=== PATIENT | female | born 1985 | race Caucasian/White ===

== ENCOUNTER 2016-04-02 15:07 | Outpatient (CLI) | payer OTHER ==
[2016-04-02 15:26] VITALS: BMI 30.4
--- NOTE | 2016-04-02 18:12 | US ---
HISTORY: Pediatric bradycardia Estimated due date 04/16/2016. 38 weeks 0 days gestation. biophysical profile score requested. FINDINGS: BREATHING MOVEMENTS: 2 MOTION: 2 TONE: 2 AMNIOTIC FLUID VOLUME: 2 TOTAL: 8 AMNIOTIC FLUID INDEX: 11.76 cm. HEART RATE: 120-136 bpm. PLACENTA: Grade 2 PRESENTATION: Vertex IMPRESSION: biophysical profile score 8. Exam is otherwise unremarkable. Findings were called to nurse taking care of the patient at approximately 1807 hours on 04/02/2016.
--- NOTE | 2016-04-02 20:00 | PDOC36 ---
Provider Note Subject: S/ PT sent from office due to audible FHT 110-140. 31 yo at 38 weeks with some mild contractions. Initially FHT reactive and TOCO Q4 minutes. BPP obtained and was 8/8. SVE /50-3, anterior, soft Pt returned from US and was having more painful contractions then before. She lives in [place] and so we are going to continue to triage her for another 2 hours and see if she changes and moves into active labor. With the roads and ice, and her distance and 4th baby, we may need to obs her overnight if there remain painful or if she makes some minor cervical changes. Reviewed with RN and pt and her and they are agreeable. She notes that she would be very anxious to go home with how she is feeling at this time.
== END 2016-04-02 21:21 | disposition home or self-care (01) ==
LOC: FBC 15:07 → FBCOUT 15:07
PROVIDERS: ATTEND Family Medicine
DX: O76 Abnormality in fetal heart rate and rhythm complicating labor and delivery (principal); O47.1 False labor at or after 37 completed weeks of gestation; Z3A.38 38 weeks gestation of pregnancy
CPT/HCPCS: 76819; 59025; 81002; G0463

== ENCOUNTER 2016-04-13 18:12 | Inpatient (IN) | payer OTHER ==
[2016-04-13] MEDS ORDERED: OXYTOCIN IN LR 500 ML IV ONE ×2 (19:11→20:32)
[2016-04-13] MEDS ORDERED: LACTATED RINGERS 1,000 ML IV PRN (19:11)
[2016-04-13] MEDS ORDERED: PENICILLIN G POTASSIUM 5 MMU in NS 0.9% (MINI-BAG PLUS) 100 ML IV ONE (19:12)
[2016-04-13] MEDS ORDERED: LACTATED RINGERS 1,000 ML IV SCH (19:15)
[2016-04-13] MEDS ORDERED: PENICILLIN G POTASSIUM 5 MMU VIAL ONE (19:25)
[2016-04-13] MEDS ORDERED: NS 0.9% (MINI-BAG PLUS) 100 ML IV ONE (19:25)
[2016-04-13] MEDS ORDERED: IV START KIT ONE (19:25)
[2016-04-13 20:32] LABS: HEMATOCRIT 38.1 % (37.0-47.0); HEMOGLOBIN 13.4 gm/l (12.0-16.0); MEAN CELL VOLUME 90.1 fl (81.0-99.0); MEAN CORPUSCULAR HEMOGLOBIN 31.7 pg (27.0-31.0); MEAN CORPUSCULAR HGB CONC 35.2 g/dl (33.0-37.0); RED CELL DISTRIBUTION WIDTH 13.2 % (11.5-14.5)
[2016-04-13] MEDS ORDERED: LIDOCAINE Viscous 2% 15 ML UDCUP ONE (20:32)
[2016-04-13] MEDS ORDERED: OXYTOCIN 10 UNITS/ML VIAL ONE (20:32)
[2016-04-13] MEDS ORDERED: PUMP TUBING ONE (20:32)
[2016-04-13] MEDS ORDERED: LIDOCAINE 1% (PRES FREE) 30 ML VIAL ONE (20:32)
[2016-04-13] MEDS ORDERED: MINERAL OIL 25 ML BOT ONE (20:32)
[2016-04-13 21:49] VITALS: BMI 29.5
--- NOTE | 2016-04-13 22:08 | PCMAN ---
OB Admission Note - History : 4 Term: 3 : 0 Abortions (S&E): 0 Livin EDC:: 04/16/16 Gestational Age (weeks): 39 Days (#/7): 4 Admit Cervical Dilation:: 5 Admit Cervical Effacement (%):: 70 Admit Station:: -3 Admit Presentaton:: Vertex Membrane Status: Intact Contractions: Yes Contraction Frequency:: every 4-6 minutes Heart Rate:: 130 Status:: Cat 1 EFW:: 9 pounds Summary of Course:: PNC essentially unremarkable. Had glucosuria at 28 weeks with GTT testing and again at 34 weeks. Weight gain about 38 pounds. Hx of LGA infants. PElvis is adequate - Labs Blood Type: A (+) positive Rubella Status: Immune GBS Status: Positive Abnormal Labs: None - Physical Exam General: Afebrile Psych/Mental Status: Mood/Affect Appropriate, Judgment/Insight Intact Neurological: Grossly Intact, Alert, Oriented x 4, Normal Speech HEENT: Atraumatic, EOMI Lungs: Clear to Auscultation Bilaterally, Normal Air Movement Cardiovascular: Regular Rate and Rhythm, Normal S1, Normal S2, No Murmur Abdomen: No Tenderness Genitourinary: Normal Female Genitalia Extremities: Full ROM, No Cyanosis, No Edema, No Tenderness Skin: Normal Color, Warm, Dry, Intact - Problems (1) Qualifiers: Weeks of gestation: 39 weeks Qualifier Code: (Z3A.39) 39 weeks gestation of Status: Acute Code: Z33.1 Assessment/Plan: Has made cervical change since office check. Contractions mildly uncomfortable. Will AROM when head better applied to cervix and adequate time has passed with GBS prophylaxis (2) Group B streptococcal carriage complicating Status: Acute Code: O99.820 Assessment/Plan: Will receive PCN prophylactically (3) tubal ligation planned Status: Acute Code: [id number] Assessment/Plan: Consent reviewed and she continues to desire PPBTL
[2016-04-13] MEDS: OXYTOCIN IN LR 500 ML IV PRN (23:43)
[2016-04-13] MEDS: PENICILLIN G 3 MIL UNIT PREMIX 3 MMU in Premix (D5W) 50 ml 1 EACH IV SCH (23:45)
[2016-04-14] MEDS: OXYTOCIN IN LR 500 ML IV PRN ×2 (01:30→01:33)
[2016-04-14] MEDS ORDERED: PENICILLIN G 3 MIL UNIT PREMIX 50 ML IV ONE (03:45)
[2016-04-14] MEDS: PENICILLIN G 3 MIL UNIT PREMIX 3 MMU in Premix (D5W) 50 ml 1 EACH IV SCH (03:47)
[2016-04-14] MEDS ORDERED: MINERAL OIL 25 ML BOT TP ONE (03:57)
[2016-04-14] MEDS ORDERED: DOCUSATE SODIUM 100 MG CAPSULE PO PRN (04:25)
[2016-04-14] MEDS ORDERED: HYDROCODONE/ACETAMINOPHEN 5/325MG TABLET PO PRN (04:25)
[2016-04-14] MEDS ORDERED: MAGNESIUM HYDROXIDE 30 ML UDCUP PO PRN (04:25)
[2016-04-14] MEDS ORDERED: OXYTOCIN IN LR 500 ML IV ONE (04:25)
[2016-04-14] MEDS ORDERED: LANOLIN 50 APPLIC/7G TUBE TP PRN (04:25)
[2016-04-14] MEDS ORDERED: LACTATED RINGERS 1,000 ML IV PRN (04:25)
[2016-04-14] MEDS ORDERED: BENZOCAINE/MENTHOL 60 APPLIC/BOT TP PRN (04:25)
[2016-04-14] MEDS ORDERED: CALCIUM CARBONATE 500 MG TAB.CHEW PO PRN (04:25)
--- NOTE | 2016-04-14 04:31 | PCMDEL ---
Delivery Note - Labor 1st stage (hr/min):: 0315--0354 39 minutes 2nd stage (hr/min):: 0352--0354 2 minutes 3rd stage (hr/min):: 0354--0359 5 minutes Total (hr/min):: 46 minutes - Delivery Delivery (Date): 04/14/16 Delivery (Time): 03:54 Gender: Male Weight: 3.77 kg Presentation: Cephalic Position: OA Umbilical Cord: 3 Vessel, Nuchal Cord (delivered through) Delayed Cord Clamping:: 2-3 min 1 Minute Total: 9 5 Minute Total: 9 Placenta:: normal and intact EBL:: 200mls Perineum:: intact Suture:: none Anesthesia/Meds:: none Length ROM:: 14 minutes
[2016-04-14] MEDS: OXYCODONE HCL 5 MG TABLET PO PRN ×3 (05:15→21:19)
[2016-04-14] MEDS: IBUPROFEN 800 MG TABLET PO SCH ×3 (05:15→20:11)
[2016-04-14 06:26] LABS: HEMATOCRIT 34.1 % (37.0-47.0); HEMOGLOBIN 11.9 gm/l (12.0-16.0)
[2016-04-14] MEDS ORDERED: SPINAL PROCEDURAL TRAY 1 EACH ONE (17:06)
[2016-04-14] MEDS ORDERED: IV START KIT ONE (17:06)
[2016-04-14] MEDS ORDERED: SODIUM CHLORIDE 0.9% FLUSH 10 ML ONE (17:06)
[2016-04-14] MEDS ORDERED: ONDANSETRON 4 MG/2ML 2 ML VIAL ONE (17:10)
[2016-04-14] MEDS ORDERED: MIDAZOLAM HCL 1 MG/ML 2ML VIAL ONE (17:10)
[2016-04-14] MEDS ORDERED: PROPOFOL 20 ML IV ONE ×2 (17:10→18:39)
[2016-04-14] MEDS ORDERED: DEXAMETHASONE SOD PHOS 4 MG/1 ML VIAL ONE (17:10)
[2016-04-14] MEDS ORDERED: FENTANYL 100 MCG/2 ML VIAL ONE (17:10)
[2016-04-14] MEDS ORDERED: LIDOCAINE 2% (PRES FREE) 5 ML VIAL ONE (17:10)
--- NOTE | 2016-04-14 18:10 | PDOC44 ---
- Subjective Day: 0 Reports Pain Tolerable, Reports Lochia Light - Objective Temp Pulse Resp BP Pulse Ox 98.1 F 75 16 108/62 04/14/16 13:28 04/14/16 13:28 04/14/16 07:50 04/14/16 13:28 Lab Results 04/14/16 04/13/16 05:30 19:45 WBC 12.6 H RBC 4.23 Hgb 11.9 L 13.4 Hct 34.1 L 38.1 Plt Count 203 04/13/16 19:45 MCH 31.7 H Current Medications Generic Name Dose Route Start Last Admin Trade Name Freq PRN Reason Stop Dose Admin Acetaminophen/Hydrocodone Bitart 1 - 2 tab 04/14/16 04:25 Delta 5/325 PO Q4H PRN Pain (Moderate) Benzocaine/Menthol 1 applic 04/14/16 04:25 Dermoplast TP PRN PRN Patient Comfort Calcium Carbonate/Glycine 500 mg 04/14/16 04:25 Tums PO BID PRN Indigestion Docusate Sodium 100 mg 04/14/16 04:25 Colace PO DAILY PRN Comfort Emollient Ointment 1 applic 04/14/16 04:25 Wey-P-Lkvhqz TP PRN PRN sore nipples Lactated Ringer's 1,000 mls @ 100 mls/hr 04/14/16 04:25 04/14/16 16:30 Lactated Ringers IV 100 mls/hr .Q10H PRN Administration Titrate per clinical situation Ibuprofen 800 mg 04/14/16 05:00 04/14/16 11:43 Motrin PO 800 mg Q6HR GEO Administration Magnesium Hydroxide 30 ml 04/14/16 04:25 Milk Of Magnesia PO BEDTIME PRN Constipation Oxycodone HCl 5 - 10 mg 04/14/16 04:25 04/14/16 05:15 Roxicodone PO 5 mg Q3H PRN Administration Pain (Severe) Sodium Chloride 10 ml 04/14/16 04:25 Normal Saline 10ml Flush IV PRN PRN IV Flush Sodium Chloride 10 ml 04/14/16 09:00 04/14/16 16:30 Normal Saline 10ml Flush IV 10 ml Q8HR GEO Administration - Physical Exam General: Afebrile Psych/Mental Status: Mood/Affect Appropriate, Judgment/Insight Intact, Bonding Well, Anxious (mild about surgery) Fundus: Firm, Below Umbilicus Abdomen: No Tenderness, No Distention Extremities: Full ROM, No Cyanosis, No Edema, No Tenderness Skin: Normal Color, Warm, Dry, Intact - Problems:Assessment/Plan (1) (spontaneous vaginal delivery) Status: Acute Assessment/Plan: PPD #0 desires BTL. Stable. Would like to go home tomorrow if able so will do tonight (2) tubal ligation planned Status: Acute Assessment/Plan: Consent reviewed and she continues to desire PPBTL PARQ reviewed questions solicited and answered to her apparent satisfaction. Reviewed failure rate . Reviewed pain bleeding and infection risks as well as damage to internal organs. Disposition: Stable, Anticipate DC Home Tomorrow
[2016-04-14] MEDS ORDERED: BUPIVACAINE 0.5% (PRES FREE) 30 ML VIAL ONE (18:39)
[2016-04-14] MEDS ORDERED: CEFAZOLIN SODIUM 1,000 MG VIAL ONE (18:39)
--- NOTE | 2016-04-14 19:16 | PCMBTL ---
Brief Post Op Note: Date of Procedure: 04/14/16 Start Time: see OR sheet Preoperative Diagnosis: 1. undesired fertility desiring permanent sterilization Postoperative Diagnosis: 1. undesired fertility desiring permanent sterilization Procedure: Bilateral Tubal Ligation Surgeon: Karol Hodge MD Anesthesia: Spinal with sedation Findings: Normal tubes and ovaries Condition: good Complications: none IV Fluids: 900 mLs of LR Urine Output: voided on way to OR Estimated Blood Loss: 5 mLs Specimens: segments of right and left fallopian tubes, tie on the right Drains: none Summary of procedure: Pt was taken to operating room and spinal anesthesia was placed and then she was prepped and draped in sterile fashion. After time out was held and pt and procedure appropriately identified and 2 grams Ancef given, the edges of the umbilicus were grasped with Allis clamps and elevated up, 6mls of Marcaine 0.5% plain was infused infraumbilical. Transverse incision was made through the skin and Allis clamps repositioned to skin edges and tissue was dissected bluntly down to fascia with Sapp scissors. Fascia was grasped with Allis clamps and brought up into the incision and a transverse incision was made, and the peritoneum was entered bluntly. KEISHA retractor was placed and inspected to be clear of entrapped tissue. Pt placed in Trendelenberg and the right fallopian tube was identified and grasped with a Nunnelly clamp and followed out to the fimbriated end. Clamp was placed mid section and the Bovie was used to open the mesosalpinx. [address] distal and proximal to clamp and the tube was ligated x2 each side. The interposed section was excised, and the tips of tubes were cauterized. Hemostasis was noted and the tube was returned to the peritoneal cavity and again inspected for hemostasis. Attention was then turned to the left fallopian tube and was grasped, identified and ligated in similar fashion. Hemostasis was noted. The Fascia was grasped with the Allis clamps and elevated up and closed in running fashion with 0 Vicryl. Patient was taken out of Trendelenburg. Subcutaneous tissue was closed with 4-0 monocryl. Skin was closed with 4-0 moncryl in running fashion and dressing was applied. Complications none. Specimen to pathology with tie on the right fallopian tube.
[2016-04-15] MEDS: OXYCODONE HCL 5 MG TABLET PO PRN ×3 (00:15→06:04)
[2016-04-15] MEDS: IBUPROFEN 800 MG TABLET PO SCH ×2 (03:21→11:09)
[2016-04-15 07:52] VITALS: BP 102/66
--- NOTE | 2016-04-15 22:07 | PDOC39B ---
ADMIT DATE: 04/13/16 DISCHARGE DATE: ADMISSION DIAGNOSES: , labor Undesired fertility, desiring permanent sterilization Group B Colonization DISCHARGE DIAGNOSES: Undesired fertility, desiring permanent sterilization PPBTL Group B Colonization PROCEDURES: 04/14/16 04/14/16 PPBTL HISTORY OF PRESENT ILLNESS: 31 year old at 39 weeks 5 days presenting with painful contractions and advanced cervical dilitation. She was started on prophylaxis for GBS, and received 3 doses. She did not make cervical change as expected and was too high to AROM, she was augmented with pitocin and quickly progressed to complete and delivery over an intact perineum without complications. DELIVERY INFORMATION: Delivery Date/Time: 04/14/16 @ 03:54 Weight: 3.77 kg Totals: 1 minute 9, 5 minute 9 Lacerations: intact Repair: none Anesthesia/Meds: none Blood Loss: 200mls HOSPITAL COURSE: The patient did well , and desired to go home after 24 hours. A ppbtl was performed about 14 hrs without complications. By day of discharge the patient is ambulating, eating, voiding, and passing flatus without difficulty. Pain is controlled and lochia is appropriate. She is bottle feeding. - Physical Exam Vital Signs: Temp Pulse Resp BP Pulse Ox 98.1 F 65 16 102/66 97 04/15/16 07:51 04/15/16 07:51 04/15/16 07:51 04/15/16 07:51 04/14/16 20:40 General: Afebrile Psych/Mental Status: Mood/Affect Appropriate, Judgment/Insight Intact, Bonding Well Neurological: Grossly Intact, Alert, Oriented x 4 HEENT: Atraumatic, EOMI Lungs: Clear to Auscultation Bilaterally, Normal Air Movement Cardiovascular: Regular Rate and Rhythm, Normal S1, Normal S2 Fundus: Firm, Below Umbilicus Abdomen: No Tenderness, No Distention Extremities: Full ROM, Edema (trace), No Cyanosis, No Tenderness Skin: Normal Color, Warm, Dry, Intact Wound: Dressing in Place, Dressing Clean/Dry/Intact, No Drainage, No Erythema, No Eccymosis - Discharge Diagnosis (1) (spontaneous vaginal delivery) Status: Acute Assessment/Plan: PPD #1, POD#1, Doing well and would like to go home. - Discharge Plan Condition: Good Disposition: Home Instruction Forms: Vaginal Discharge Instructions Prescriptions: Ibuprofen [IBUPROFEN 800 MG TABLET (SHF)] 800 mg PO Q8H #30 tablet Oxycodone HCl [ROXICODONE 5 MG IR TABLET (SHF)] 5 - 10 mg PO Q3-4H PRN #30 tablet PRN Reason: Pain (Severe) Follow-Up: Karol Hodge MD [Primary Care Provider] - In 6 weeks
--- NOTE | 2016-04-17 12:51 | SURGPATH ---
[facility] [address] [place] [id number] Patient Name: ERMA CARRASQUILLO MR#: [id number] : 1985 Gender: F Specimen #: [id number] Collected: 04/14/2016 Received: 04/16/2016 Reported: 04/17/2016 Submitting Phys: LULA MA Copy To Phys: [facility] Clinical History / Pre-Operative Diagnosis: Specimen Source / Surgical Procedure Performed: Bilateral fallopian tube segments Interpretation: BILATERAL FALLOPIAN TUBE, TUBAL LIGATION: - COMPLETE CROSS-SECTION OF 2 FALLOPIAN TUBES Electronically Signed Out Bharathi Graf M.D. Gross Description: The specimen is received in formalin labeled with the patient's name and "bilateral fallopian tube segments". Each specimen consists of a 2 cm in length elias rubbery non-fimbriated tube. The sutured right tube is marked with black ink for identification. Submitted entirely in one cassette. DANDY Granado Microscopic Description: Microscopic performed. 1: [id number](2 Z30.2
== END 2016-04-15 12:18 | disposition home or self-care (01) | DRG 767 ==
LOC: FBCOUT 18:12 → FBC 18:16 → FBCOUT 19:09 → FBC 19:15
PROVIDERS: ADMIT Family Medicine; ATTEND Family Medicine
PROC: 10E0XZZ Delivery of Products of Conception, External Approach (ICD-10-PCS; principal; 2016-04-14)
PROC: 0UB74ZZ Excision of Bilateral Fallopian Tubes, Percutaneous Endoscopic Approach (ICD-10-PCS; 2016-04-14)
DX: O99.824 Streptococcus B carrier state complicating childbirth (principal); Z30.2 Encounter for sterilization; O69.81X0 Labor and delivery complicated by cord around neck, without compression, not applicable or unspecified; Z82.79 Family history of other congenital malformations, deformations and chromosomal abnormalities; Z3A.39 39 weeks gestation of pregnancy; Z37.0 Single live birth